=== PATIENT | female | born 1955 | race Caucasian/White ===

== ENCOUNTER → 2019-01-09 | Outpatient (CLI) | payer OTHER ==
[~2019-01-09] MED LIST: BENAZEPRIL HCL10 MG PO; BENAZEPRIL HCL20 MG PO; BENAZEPRIL HCL40 MG PO; COQ-10100 MG PO; DYMISTA NASAL S23 GM NASAL; FLAXSEED OIL1000 MG PO; GLUCOPHAGE1000 MG PO; HUMALOG100 UNIT/1 SUBQ; HUMALOG100 UNIT/2 SUBQ; INVOKANA300 MG PO; LANTUS SUBQ; PRAVACHOL40 MG PO; PREVASTATIN; SORINE 80 MG TA80 M1 PO; VITAMIN B-12500 MCG PO; VITAMIN D31000 UNI2 PO
== END ==
LOC: M.CT 08:54
DX: J32.9 Chronic sinusitis, unspecified (principal); J34.89 Other specified disorders of nose and nasal sinuses; R68.84 Jaw pain